=== PATIENT | male | born 1960 | race Caucasian/White ===

== ENCOUNTER 2019-02-02 21:50 | Emergency (ER) | payer OTHER, BC ==
[~2019-02-02] VITALS: Ht 172.7 cm; Wt 93.9 kg
--- NOTE | 2019-02-02 21:58 | NUR ---
Pt BIB [facility] with a c/o SOB. Pt is speaking in full sentences and stated that he is feeling good now. Pt is 94% on RA. Bilateral lung sounds are clear. Pt is on the monitor and continuous pulse ox. Productive cough noted. Pt is currently on Amoxicillian for an ear infection. Pt also rec'd a Shingles shot today while [facility] a [facility].
[2019-02-02] MEDS ORDERED: ALBUTEROL FS 2.5 MG/3 ML VIAL.NEB NEB ONE (22:30)
[2019-02-02] MEDS ORDERED: ALBUTEROL FS 2.5 MG/3 ML VIAL.NEB ONE (22:40)
[2019-02-02 22:47] LABS: BASOPHILS % (AUTO) 0.3 % (0.0-2.0); EOSINOPHILS % (AUTO) 0.4 % (0.0-6.0); HEMATOCRIT 43 % (39-51); HEMOGLOBIN 14.9 g/dL (13.5-17.5); LYMPHOCYTES % (AUTO) 7.4 % (20.0-44.0); MEAN CORPUSCULAR HGB CONC 34 g/dl (31.0-36.0); MEAN CORPUSCULAR VOLUME 90 fL (80-96); MONOCYTES # (AUTO) 0.6 /CMM (0.1-1.30); MONOCYTES % (AUTO) 4.8 % (2.0-12.0); NEUTROPHILS # (AUTO) 11.1 /CMM (1.8-8.9); NEUTROPHILS % (AUTO) 87.1 % (43.0-81.0); PLATELET COUNT (AUTO) 247 /CMM (150-450); RED BLOOD CELL COUNT(AUTO) 4.79 MIL/uL (4.5-6.0); WHITE BLOOD COUNT (AUTO) 12.8 K/uL (4.3-11.0)
--- NOTE | 2019-02-02 23:10 | NUR ---
LAB CALLED RE: PT'S TROPOININ IS 11.058. DR VASQUEZ IS AWARE.
--- NOTE | 2019-02-02 23:12 | NUR ---
CALLED LAB FOR REDRAW OF TROPONIN PER DR. VASQUEZ.
[2019-02-02 23:21] LABS: POTASSIUM 4.7 mmol/L (3.5-5.1)
--- NOTE | 2019-02-02 23:21 | NUR ---
CALLED LAB RE: THE TROPONIN. LAB RESULTED THE TROPONIN FROM THE HEMOLIZED SPECIMEN. DR. VASQUEZ IS AWARE.
--- NOTE | 2019-02-02 23:21 | NUR ---
Lashawn lazcano in [facility] - 02/02/19 at 2325 by [facility] CALLED. BLOOD WAS DRAWN ON THE HEMOLIZED SAMPLE.
[2019-02-02 23:22] LABS: CALCIUM, SERUM 8.8 mg/dL (8.5-10.1); CREATININE 1.3 mg/dL (0.6-1.3)
[2019-02-02 23:25] LABS: BILIRUBIN,DIRECT 0.1 mg/dL (0.0-0.2)
[2019-02-02 23:27] LABS: ALBUMIN 3.3 g/dL (3.4-5.0); BILIRUBIN,TOTAL 0.5 mg/dL (0.2-1.0)
[2019-02-02 23:30] LABS: TOTAL PROTEIN, SERUM 6.7 g/dL (6.4-8.2)
[2019-02-02] MEDS ORDERED: CT SWABBABLE VALVE TRANS SET 1 EA INFUS.SET MC ONE (23:30)
[2019-02-02] MEDS ORDERED: IV NS 0.9% 250 ML IV ONE (23:30)
[2019-02-02] MEDS ORDERED: IOHEXOL-350 100 ML VIAL IV ONE (23:30)
[2019-02-02] MEDS ORDERED: ASPIRIN 81 MG TAB.CHEW ONE (23:49)
--- NOTE | 2019-02-02 23:51 | NUR ---
PT RETURNED FROM CT AND IS SATURATING AT 90% ON 4L VIA NC. PT WAS PLACED ON THE MONITOR AND CONTINUOUS PULSE OX. PT WAS PLACED ON A NRB MASK AT 15L. PT'S O2 SAT IS 96% ON NRB MASK. PT IS C/O SEVERE LT SIDED CP. DR VASQUEZ IS AT THE BEDSIDE. EKG IN PROGRESS.
--- NOTE | 2019-02-02 23:51 | NUR ---
PT REC'D 4 BABY ASPIRIN PO PER .
[2019-02-02] MEDS ORDERED: ONDANSETRON HCL/PF 4 MG/2 ML VIAL ONE (23:54)
[2019-02-02] MEDS ORDERED: MORPHINE SULFATE INJ 2 MG/ML DISP.SYRIN ONE (23:55)
[2019-02-02] MEDS ORDERED: INSULIN REGULAR, HUMAN 100 UNIT/ML 10 ML VIAL ONE (23:58)
[2019-02-03] MEDS ORDERED: NITROGLYCERIN 0.4 MG/TAB BOTTLE SL ONE
[2019-02-03] MEDS ORDERED: HEPARIN INFUSION/D5W 500 ML IV PRN
[2019-02-03] MEDS ORDERED: INSULIN REGULAR, HUMAN 100 UNIT/ML 10 ML VIAL IV ONE
[2019-02-03] MEDS ORDERED: ONDANSETRON HCL/PF 4 MG/2 ML VIAL IV ONE
[2019-02-03] MEDS ORDERED: IV NS 0.9% 1,000 ML BAG IV ONE
[2019-02-03] MEDS ORDERED: MORPHINE SULFATE INJ 2 MG/ML DISP.SYRIN IV ONE
[2019-02-03] MEDS ORDERED: NITROGLYCERIN 0.4 MG/TAB BOTTLE ONE (00:01)
--- NOTE | 2019-02-03 00:05 | NUR ---
ACCUCHECK DONE. BS IS 366. INSULIN GIVEN IV PER .
[2019-02-03] MEDS ORDERED: HEPARIN INFUSION/D5W 500 ML IV ONE (00:08)
[2019-02-03 00:09] VITALS: BP 96/74
[2019-02-03] MEDS ORDERED: HEPARIN SODIUM, PORCINE 5000 UNITS/1 ML VIAL ONE (00:09)
--- NOTE | 2019-02-03 00:22 | NUR ---
ADDENDUM: Intravenous End Time Documentation: Heparin Infusion (25,000/D5W 500 ml) start time: 0022 am end time: 0031 am Site: PIV # [id number]; port # 1
--- NOTE | 2019-02-03 00:22 | NUR ---
HEPARIN BOLUS GIVEN AND HEPARIN DROP STARTED
[2019-02-03] MEDS ORDERED: HEPARIN SODIUM, PORCINE 5000 UNITS/1 ML VIAL IV ONE ×2 (00:30)
--- NOTE | 2019-02-03 00:30 | NUR ---
PER EMS, HEPARIN DRIP PUT ON HOLD FOR TRANSPORT. RN OFFERED TO GO WITH RESCUE, BUT TOLD THAT IT WAS NOT NECESSARY.
--- NOTE | 2019-02-03 00:33 | NUR ---
PT LEFT VIA 911 TO [facility]. ACCEPTING MD IS DR. Nabor KENNY.
[2019-02-03] MEDS ORDERED: ASPIRIN 325 MG TABLET PO ONE ×2 (01:00)
== END 2019-02-03 00:33 | disposition short-term general hospital (02) ==
LOC: ER 21:53
DX: I21.3 ST elevation (STEMI) myocardial infarction of unspecified site (principal); I10 Essential (primary) hypertension; E11.9 Type 2 diabetes mellitus without complications; F17.200 Nicotine dependence, unspecified, uncomplicated; R00.0 Tachycardia, unspecified
CPT/HCPCS: 36415 ×2; 71275; 80048; 80076; 82962; 83605; 83880; 84484 ×2; 85025; 85610; 85730; 87040 ×2; 87804 ×2; 93005; 94640; 96374; 96375; 99291; J1644 ×2; J1815; J2270; J2405; J7050; Q9967; 87400; J7030